=== PATIENT | male | born 1995 ===

== ENCOUNTER → 2019-04-28 | Outpatient (REF) | payer BC ==
[2019-04-28 17:48] LABS: PLATELET COUNT, AUTOMATED 377 K/uL (150-450)
== END ==
LOC: ZZSTITCHES 17:31
PROVIDERS: ATTEND Physician Assistant
DX: R53.81 Other malaise (principal); R11.0 Nausea; R53.83 Other fatigue
CPT/HCPCS: 82040; 82247; 82310; 82374; 82435; 82565; 82947; 84075; 84132; 84155; 84295; 84443; 84450; 84460; 84520; 85025